=== PATIENT | male | born 1970 | race Caucasian/White ===

== ENCOUNTER 2023-01-23 15:09 | Emergency (ER) | payer BC ==
[2023-01-23] MEDS ORDERED: NS IV 1000 ML 1,000 ML IV STA (15:24)
[2023-01-23] MEDS ORDERED: TETANUS,DIPTH,PERTUSS P/F (BOOSTRIX) 0.5 ML VIAL IM ONE (15:30)
[2023-01-23] MEDS ORDERED: ONDANSETRON 4 MG/2 ML (SDV) Z0FRAN ONE (15:34)
[2023-01-23 15:35] LABS: BASOPHILS # (AUTO) 0.1 10^3/uL (0.0-0.1); BASOPHILS % (AUTO) 1 % (0-10); EOSINOPHILS # (AUTO) 0.2 10^3/uL (0.0-0.3); EOSINOPHILS % (AUTO) 2 % (0-10); HEMATOCRIT 45 % (40-54); HEMOGLOBIN 14.9 g/dL (13.3-17.7); LYMPHOCYTES # (AUTO) 2.8 10^3/uL (1.0-4.0); LYMPHOCYTES % (AUTO) 27 % (12-44); MEAN CORPUSCULAR HEMOGLOBIN 28 pg (25-34); MEAN CORPUSCULAR HGB CONC 34 g/dL (32-36); MEAN CORPUSCULAR VOLUME 84 fL (80-99); MEAN PLATELET VOLUME 10.6 fL (9.0-12.2); MONOCYTES # (AUTO) 0.8 10^3/uL (0.0-1.0); MONOCYTES % (AUTO) 7 % (0-12); NEUTROPHILS # (AUTO) 6.7 10^3/uL (1.8-7.8); NEUTROPHILS % (AUTO) 63 % (42-75); PLATELET COUNT 178 10^3/uL (130-400); WHITE BLOOD COUNT 10.6 10^3/uL (4.3-11.0)
[2023-01-23] MEDS ORDERED: ONDANSETRON 4 MG/2 ML (SDV) Z0FRAN IVP STA (15:35)
[2023-01-23] MEDS ORDERED: HOLD METFORMIN - RECEIVED CONTRAST 20 ML VIAL IV SCH (15:45)
[2023-01-23] MEDS ORDERED: IOHEXOL 350 MG/ML 100 ML (OMNIPAQUE 350) VIAL IV ONE (15:45)
[2023-01-23] MEDS ORDERED: NS 100 ML (IVPB) BAG IV ONE (15:45)
[2023-01-23 15:47] LABS: PROTHROMBIN TIME PATIENT 13.3 SEC (12.2-14.7)
--- NOTE | 2023-01-23 15:52 | ED Fall/Injury ---
General Chief Complaint: Trauma-Non Activation Stated Complaint: FALL; LT WRIST/ANKLE/HIP Nursing Triage Note: READ TRIAGE NOTE Source: patient Exam Limitations: no limitations History of Present Illness Date Seen by Provider: Jan 23, 2023 Time Seen by Provider: 15:11 Initial Comments 52-year-old male presenting with complaints of falling from approximately 8 feet up on a ladder. He was working on loading his camper and grabbed on to the rail of the camper roof and it gave way causing him to fall. He thinks he hit the boat on his way down. he took the brunt of the force on his left side. he thinks he passed out for a few seconds when he hit the concrete. He has abrasions to the left side of his head, contusion and abrasion to left wrist, pain to lateral left ankle, pain to low back and left hip, pain to left chest wall posteriorly. He drank a few sips of water on his way to the ED. He was able to get up with assistance and came by private vehicle to the ED. He has some nausea with his pain. He can not bear weight on the left leg without severe pain in lateral ankle and hip/buttocks area. He did not take anything for pain prior to coming to the ED. He reports his pain was severe initially but now down to a 5 or 6. He thinks it has been more than 5 years since his last tetanus shot. He denies allergies to medicines but states he is not supposed to take ibuprofen because he takes meloxicam. Occurred: just prior to arrival Severity: moderate Injuries/Pain Location: head, neck, upper extremity (left wrist), chest, abdomen, back, pelvis (left hip), lower extremity (left ankle) Context: lost balance (railing on top of camper gave way while he was up about 8 feet on a ladder causing him to fall and hit his boat and then the cement ) Loss of Consciousness: brief (seconds) Modifying Factors: Worse With Movement Associated Symptoms (Fall): Abdominal Pain (left flank), Chest Pain (left posterior chest); No Confusion, No Dizziness; Headache; No Lightheadedness, No Muscle Spasms; Nausea/Vomiting (nausea with his pain but no emesis), Neck Pain; No Ringing in Ears, No Seizures Allergies and Home Medications Allergies Coded Allergies: No Known Drug Allergies (Unverified , 01/23/23) Patient Home Medication List Home Medication List Reviewed: Yes Cyclobenzaprine HCl (Cyclobenzaprine HCl) 10 Mg Tablet, 10 MG PO Q8H PRN for SPASMS Prescribed by: NIVIA PAGE on 01/23/23 165 Hydrocodone/Acetaminophen (Hydrocodone-Acetamin 5-325 mg) 5 Mg-325 Mg Tablet, 1 TAB PO Q4H PRN for PAIN SEVERE Prescribed by: NIVIA PAGE on 01/23/23 165 Review of Systems Review of Systems Constitutional: No chills, No dizziness, No fever Eyes: Denies Blurred Vision, Denies Photophobia, Denies Vision Changes Ears, Nose, Mouth, Throat: denies ear pain, denies ear discharge, denies nose pain, denies nose discharge, denies epistaxis Respiratory: No cough, No dyspnea on exertion, No short of breath Cardiovascular: chest pain (left side of chest posteriorly) Gastrointestinal: abdominal pain (left flank and posterior low back) Genitourinary: No dysuria Musculoskeletal: see HPI, back pain, joint pain (left wrist and left ankle) Skin: see HPI Psychiatric/Neurological: Headache; Denies Numbness, Denies Paresthesia Past Mvszicf-Fuqurm-Wzwiek Hx Patient Social History Tobacco Use?: No Use of E-Cig and/or Vaping dev: No Substance use?: No Alcohol Use?: No Pt feels they are or have been: No Physical Exam Vital Signs Vital Signs - First Documented 01/23/23 15:20 Temp 36.4 Pulse 83 Resp 16 B/P (MAP) 133/99 (110) Pulse Ox 95 O2 Delivery Room Air Capillary Refill : Less Than 3 Seconds Height, Weight, BMI Height: '" Weight: lbs. oz. kg; BMI Method: General Appearance: WD/WN, obese HEENT: PERRL/EOMI, normal ENT inspection, TMs normal, pharynx normal; No TM abnormal (R), No TM abnormal (L); other (Negative bansal sign, negative raccoon sign, no CSF otorrhea, no CSF rhinorrhea, no hemotympanums, abrasions to the left scalp) Neck: full range of motion, supple, tender lateral (left lateral neck muscle pain) Cardiovascular: normal peripheral pulses, regular rate, rhythm Respiratory: No chest non-tender (tender to left lateral and posterior chest wall. no crepitus or step off); lungs clear, normal breath sounds, no respiratory distress, no accessory muscle use Gastrointestinal: normal bowel sounds, soft, no pulsatile mass, tenderness (left flank and low back pain) Rectal: deferred Extremities: normal range of motion, normal capillary refill, other (pain to left medial wrist where he has contusion and abrasions, pain to left lateral ankle without crepitus or step off. 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, no motor/sensory deficits, alert, normal mood/affect, oriented x 3 Skin: warm/dry, other (contusion and abrasion to left medial wrist, abrasions to left scalp) Hernandez Coma Score Best Eye Response: (4) Open Spontaneously Best Verbal Response: (5) Oriented Best Motor Response: (6) Obeys Commands [place] Total: 15 Progress/Results/Core Measures Results/Orders Lab Results Laboratory Tests Test 01/23/23 15:35 01/23/23 16:13 Range/Units White Blood Count 10.6 4.3-11.0 10^3/uL Red Blood Count 5.30 4.30-5.52 10^6/uL Hemoglobin 14.9 13.3-17.7 g/dL Hematocrit 45 40-54 % Mean Corpuscular Volume 84 80-99 fL Mean Corpuscular Hemoglobin 28 25-34 pg Mean Corpuscular Hemoglobin Concent 34 32-36 g/dL Red Cell Distribution Width 14.2 10.0-14.5 % Platelet Count 178 130-400 10^3/uL Mean Platelet Volume 10.6 9.0-12.2 fL Immature Granulocyte % (Auto) 1 % Neutrophils (%) (Auto) 63 42-75 % Lymphocytes (%) (Auto) 27 12-44 % Monocytes (%) (Auto) 7 0-12 % Eosinophils (%) (Auto) 2 0-10 % Basophils (%) (Auto) 1 0-10 % Neutrophils # (Auto) 6.7 1.8-7.8 10^3/uL Lymphocytes # (Auto) 2.8 1.0-4.0 10^3/uL Monocytes # (Auto) 0.8 0.0-1.0 10^3/uL Eosinophils # (Auto) 0.2 0.0-0.3 10^3/uL Basophils # (Auto) 0.1 0.0-0.1 10^3/uL Immature Granulocyte # (Auto) 0.1 0.0-0.1 10^3/uL Prothrombin Time 13.3 12.2-14.7 SEC INR Comment 1.0 0.8-1.4 Activated Partial Thromboplast Time 23 L 24-35 SEC Sodium Level 144 135-145 MMOL/L Potassium Level 4.0 3.6-5.0 MMOL/L Chloride Level 107 98-107 MMOL/L Carbon Dioxide Level 22 21-32 MMOL/L Anion Gap 15 H 5-14 MMOL/L Blood Urea Nitrogen 22 H 7-18 MG/DL Creatinine 0.88 0.60-1.30 MG/DL Estimat Glomerular Filtration Rate 103 BUN/Creatinine Ratio 25 Glucose Level 134 H 70-105 MG/DL Calcium Level 8.7 8.5-10.1 MG/DL Corrected Calcium 8.6 8.5-10.1 MG/DL Total Bilirubin 0.4 0.1-1.0 MG/DL Aspartate Amino Transf (AST/SGOT) 22 5-34 U/L Alanine Aminotransferase (ALT/SGPT) 29 0-55 U/L Alkaline Phosphatase 108 40-136 U/L Total Protein 7.1 6.4-8.2 GM/DL Albumin 4.1 3.2-4.5 GM/DL Urine Color YELLOW Urine Clarity CLEAR Urine pH 5.5 5-9 Urine Specific [place] >=1.030 1.016-1.022 Urine Protein TRACE H NEGATIVE Urine Glucose (UA) NEGATIVE NEGATIVE Urine Ketones NEGATIVE NEGATIVE Urine Nitrite NEGATIVE NEGATIVE Urine Bilirubin NEGATIVE NEGATIVE Urine Urobilinogen 0.2 < = 1.0 MG/DL Urine Leukocyte Esterase NEGATIVE NEGATIVE Urine RBC (Auto) NEGATIVE NEGATIVE Urine RBC NONE /HPF Urine WBC NONE /HPF Urine Squamous Epithelial Cells NONE /HPF Urine Crystals NONE /LPF Urine Bacteria FEW H /HPF Urine Casts PRESENT /LPF Urine Hyaline Casts 5-10 H /LPF Urine Mucus LARGE H /LPF Urine Culture Indicated NO My Orders Orders - NIVIA PAGE MD Cbc With Automated Diff (01/23/23 15:24) Comprehensive Metabolic Panel (01/23/23 15:24) Protime With Inr (6/30/23 15:24) Partial Thromboplastin Time (01/23/23 15:24) Ed Iv/Invasive Line Start (01/23/23 15:24) Ua Culture If Indicated (01/23/23 15:24) Ankle 3 View Left (01/23/23 15:24) Wrist 3 View Left (01/23/23 15:24) Ct Head/Cervical Spine Wo (01/23/23 15:24) Ct Chest/Abdomen/Pelvis W (01/23/23 15:24) Ns Iv 1000 Ml (Sodium Chloride 0.9%) (01/23/23 15:24) Ice: Apply To Affected Area (01/23/23 15:24) Dipht,Pertuss(Acell),Tet Adult (Boostrix (01/23/23 15:30) Iohexol Injection (Omnipaque 350 Mg/Ml 1 (01/23/23 15:45) Received Contrast (Hold Metformin- Contr (01/23/23 15:45) Ns (Ivpb) (Sodium Chloride 0.9% Ivpb Bag (01/23/23 15:45) Ondansetron Injection (Zofran Injectio (01/23/23 15:35) Ondansetron Injection (Zofran Injectio (01/23/23 15:34) Fentanyl Inj (Sublimaze Injection) (01/23/23 16:04) Wrist-[place] (01/23/23 16:41) Air Strup Ankle Brace (01/23/23 16:41) Crutches (01/23/23 16:41) Medications Given in ED Current Medications Medications Dose Ordered Sig/Geno Route Start Time Stop Time Status Last Admin Dose Admin Diphtheria/ Tetanus/Acell Pertussis 0.5 ml ONCE ONCE IM 01/23/23 15:30 01/23/23 15:31 DC 01/23/23 15:35 0.5 ML Iohexol 100 ml ONCE ONCE IV 01/23/23 15:45 01/23/23 15:46 DC 01/23/23 15:44 100 ML Sodium Chloride 100 ml ONCE ONCE IV 01/23/23 15:45 01/23/23 15:46 DC 01/23/23 15:44 100 ML Vital Signs/I&O 01/23/23 01/23/23 15:20 16:54 Temp 36.4 36.4 Pulse 83 82 Resp 16 16 B/P (MAP) 133/99 (110) 124/84 Pulse Ox 95 97 O2 Delivery Room Air Room Air Blood Pressure Mean: 110 Progress Progress Note #1: Progress Note Potential diagnosis of intracranial hemorrhage, skull fracture, cervical spine fracture, thoracic spine fracture, hemothorax, pneumothorax, lumbar spine fracture, hip fracture, ankle fracture, wrist fracture, multiple abrasions/contusions. Obtain peripheral IV access and check labs of complete blood count, comprehensive metabolic profile, coagulation factors, UA to check for hematuria. CT scan of head and cervical spine without contrast, CT chest, abdomen, pelvis with IV contrast to look for internal injuries or fractures. Xrays of left wrist and left ankle. Ice packs to help with pain. Clean abrasions to left scalp. Patient refused any pain medicines at this point. Saline 1 Liter IVF bolus for hydration. Patient requested something for nausea before going to radiology so given Zofran 4 mg IV. Progress Note #2: Time: 16:00 Progress Note I did not appreciate any fractures or internal injury/bleeding on my personal interpretation and review of Left wrist xrays, Left ankle xrays, CT scan of head, cervical spine, chest abdomen and pelvis. On return to department patient decided he wanted something for pain so given Fentanyl 50 mcg IV x 1. Progress Note #3: Time: 16:45 Progress Note I reviewed the radiologist reports on Ankle xray, Wrist xray, CT scan of head, cervical spine, chest, abdomen, pelvis. They did not see any acute fractures or internal bleeding. Labs did not show elevated WBC count for infection, normal hemoglobin at 14.9, Comprehensive metabolic profile without acute significant abnormality, normal coagulation factors. UA was concentrated with elevated specific gravity >1.030 but no blood or signs of infection. Pt reports pain improved after ice and fentanyl Treat with wrist splint and ankle splint for support. Patient has access to walker and plans to use it instead of crutches. May take acetaminophen in addition to his meloxicam, for severe pain send prescription for hydrocodone/apap 5/325 1 every 4 hours prn severe pain, Cyclobenzaprine 10 mg po tid prn muscle spasms. Stay well hydrated and drink plenty of fluids. Use ice packs to help with pain and inflammation. Check back with clinic for continued concerns or if not improving as he may need PT or other imaging. Diagnostic Imaging Diagonstic Imaging: CT Plain Films/CT/US/NM/MRI: c-spine, head Comments [facility]. [place], [place] NAME: ALEXANDRA HONG [facility] REC#: [id number] PT STATUS: REG ER : 1970 PHYSICIAN: NIVIA PAGE MD ADMIT DATE: 01/23/23/ER FS Draft Date of Exam:01/23/23 CT HEAD/CERVICAL SPINE WO CLINICAL INDICATION: Patient is status post fall from an 8-foot ladder. Patient has left-sided pain. EXAM: Head CT without IV contrast with sagittal and coronal reformations. Axial CT scan of the cervical spine with sagittal and coronal reformations. Auto Exposure Controls were utilized during the CT exam to meet ALARA standards for radiation dose reduction. COMPARISON: None. FINDINGS: Head CT: There is no evidence of acute cerebral infarct, intracranial hemorrhage, or gross mass effect. The brain parenchymal volume appears appropriate for patient's age. There is normal raya-white matter distinction. There is no significant midline shift or herniation. There is no evidence of hydrocephalus. The basal cisterns are unremarkable. There is a small amount of extracranial soft tissue swelling involving the left side and posterior aspect of the head. There is no skull fracture. Otherwise, the skull, extracranial soft tissue, and orbits are unremarkable. There is a large mucus retention cyst in the left maxillary sinus. Temporal bones show no significant abnormality. Cervical spine: There is no acute cervical spine fracture or dislocation. There is straightening of the abnormal kyphosis of the upper cervical spine posture. There are hypertrophic spurs involving the cervical spine. There is no significant neck soft tissue abnormality. IMPRESSION: 1: There is no evidence of acute intracranial hemorrhage. 2: There is a small amount of extracranial soft tissue swelling involving the left and posterior aspect of the head. There is no skull fracture. 3: There is cervical spine degenerative disease with no acute fracture. Dictated on workstation # [id number] Dict: 01/23/23 1602 Trans: 01/23/23 1612 AS6 [id number] Interpreted by: REJI COUCH MD Electronically signed by: Reviewed: Reviewed by Nd Diagonstic Imaging: CT Plain Films/CT/US/NM/MRI: chest, abdomen, pelvis Comments [facility] [place], [place] NAME: ALEXANDRA HONG [facility] REC#: [id number] PT STATUS: REG ER : 1970 PHYSICIAN: NIVIA PAGE MD ADMIT DATE: 01/23/23/ER FS Draft Date of Exam:01/23/23 CT CHEST/ABDOMEN/PELVIS W PROCEDURE: CT chest, abdomen, and pelvis with contrast. TECHNIQUE: Multiple contiguous axial images were obtained through the chest, abdomen, and pelvis after the administration of intravenous contrast. Auto Exposure Controls were utilized during the CT exam to meet ALARA standards for radiation dose reduction. INDICATION: Trauma. Left torso pain. Fall from ladder. COMPARISON: None. FINDINGS: CT CHEST: Normal heart size. No pericardial effusion. No lymphadenopathy. Normal-caliber thoracic aorta and pulmonary arteries. Lungs are clear. No pleural effusion or pneumothorax. Osseous structures are intact. CT ABDOMEN AND PELVIS: Cholecystectomy. The liver, pancreas, spleen, adrenals, kidneys, collecting systems and bladder are negative. No evidence of appendicitis. No free intraperitoneal air or fluid. No lymphadenopathy. No evidence of bowel obstruction. No acute osseous findings. IMPRESSION: No acute CT findings in the chest, abdomen or pelvis. Dictated on workstation # [id number] Dict: 01/23/23 1606 Trans: 01/23/23 1614 AS6 [id number] Interpreted by: MARZENA TRINIDAD MD Electronically signed by: Reviewed: Reviewed by Nd Diagonstic Imaging: Xray Plain Films/CT/US/NM/MRI: ankle Comments [facility]. [place], [place] NAME: ALEXANDRA HONG [facility] REC#: [id number] PT STATUS: REG ER : 1970 PHYSICIAN: NIVIA PAGE MD ADMIT DATE: 01/23/23/ER FS Draft Date of Exam:01/23/23 ANKLE 3 VIEW LEFT INDICATION: Left ankle pain. AP, oblique, and lateral views of the left ankle are obtained. FINDINGS: No fracture or acute bony abnormality is seen. There is plantar and posterior calcaneal spurring. There are chronic appearing calcifications inferior to the medial malleolus. There are some chronic calcifications lateral to the lateral malleolus. IMPRESSION: Chronic changes of left ankle as above with no acute abnormality. Dictated on workstation # [id number] Dict: 01/23/23 1605 Trans: 01/23/23 1608 [id number] Interpreted by: CARMENZA FAGAN MD Electronically signed by: Reviewed: Reviewed by Me Diagonstic Imaging: Xray Plain Films/CT/US/NM/MRI: other (wrist) Comments [facility] [place], [place] NAME: ALEXANDRA HONG [facility] REC#: [id number] PT STATUS: REG ER : 1970 PHYSICIAN: NIVIA PAGE MD ADMIT DATE: 01/23/23/ER FS Draft Date of Exam:01/23/23 WRIST 3 VIEW LEFT INDICATION: Left wrist pain post fall. EXAMINATION: AP, oblique and lateral views of the left wrist were obtained. FINDINGS: No fracture or acute bony abnormality is seen. There is degenerative change of 1st carpal metacarpal joint and of the radial carpal joint. There is some degenerative change of the radial ulnar joint. IMPRESSION: Multifocal degenerative changes with no acute abnormality in the left wrist. Dictated on workstation # [id number] Dict: 01/23/23 1606 Trans: 01/23/23 1609 [id number] [id number] Interpreted by: CARMENZA FAGAN MD Electronically signed by: Reviewed: Reviewed by Me Departure Impression Primary Impression: Fall on and from ladder, initial encounter Additional Impressions: Abrasion of scalp, initial encounter Contusion of left wrist, initial encounter Left ankle sprain Qualified Codes: S93.402A - Sprain of unspecified ligament of left ankle, initial encounter Contusion, multiple sites Disposition: 01 HOME, SELF-CARE Condition: Stable Departure-Patient Inst. Decision time for Depature: 16:50 Referrals: ELEAZAR VITALE MD (PCP) Primary Care Physician Patient Instructions: Abrasions ED, Ankle Sprain ED, General Trauma, Adult ED, Minor Contusion ED, Using Cold for Pain, Wrist Sprain ED Add. Discharge Instructions: Use ice 20 to 30 minutes every few hours as needed for pain and swelling and inflammation. Stay well hydrated to help flush out your muscles and inflammation. Check with Dr. Vitale and [facility] clinic for continued concerns. Use splints for next 5 to 7 days or at least until you are not having pain. If your pain continues for more than a week then check with clinic as they may need to set up physical therapy or repeat imaging. Use the cyclobenzaprine to help with muscle spasms. For severe pain use the Hydrocodone/Acetaminophen. Keep abrasions clean with soap and water and may apply antibiotic ointment 2 to 3 times a day as needed to help them heal and prevent infection. All discharge instructions reviewed with patient and/or family. Voiced understanding. Scripts Hydrocodone/Acetaminophen (Hydrocodone-Acetamin 5-325 mg) 5 Mg-325 Mg Tablet 1 TAB PO Q4H PRN for PAIN SEVERE for 4 Days, #24 TAB 0 Refills Prov: NIVIA PAGE MD 01/23/23 Cyclobenzaprine HCl (Cyclobenzaprine HCl) 10 Mg Tablet 10 MG PO Q8H PRN for SPASMS for 7 Days, #21 TAB 0 Refills Prov: NIVIA PAGE MD 01/23/23 NIVIA PAGE MD Jan 23, 2023 15:52
[2023-01-23] MEDS ORDERED: fentaNYL INJ 100 MCG/2 ML AMP IVP STA (16:04)
--- NOTE | 2023-01-23 16:08 | Diagnostic Imaging Report ---
INDICATION: Left ankle pain. AP, oblique, and lateral views of the left ankle are obtained. FINDINGS: No fracture or acute bony abnormality is seen. There is plantar and posterior calcaneal spurring. There are chronic appearing calcifications inferior to the medial malleolus. There are some chronic calcifications lateral to the lateral malleolus. IMPRESSION: Chronic changes of left ankle as above with no acute abnormality. Dictated by: Dictated on workstation # [id number]
--- NOTE | 2023-01-23 16:09 | Diagnostic Imaging Report ---
INDICATION: Left wrist pain post fall. EXAMINATION: AP, oblique and lateral views of the left wrist were obtained. FINDINGS: No fracture or acute bony abnormality is seen. There is degenerative change of 1st carpal metacarpal joint and of the radial carpal joint. There is some degenerative change of the radial ulnar joint. IMPRESSION: Multifocal degenerative changes with no acute abnormality in the left wrist. Dictated by: Dictated on workstation # [id number]
[2023-01-23 16:13] LABS: BILIRUBIN,URINE NEGATIVE (NEGATIVE); CLARITY,URINE CLEAR; COLOR,URINE YELLOW; GLUCOSE, URINE (UA) NEGATIVE (NEGATIVE); KETONES,URINE NEGATIVE (NEGATIVE); LEUKOCYTE ESTERASE ,URINE NEGATIVE (NEGATIVE); NITRITE,URINE NEGATIVE (NEGATIVE); PH,URINE 5.5 (5-9); PROTEIN,URINE TRACE (NEGATIVE)
--- NOTE | 2023-01-23 16:13 | Diagnostic Imaging Report ---
CLINICAL INDICATION: Patient is status post fall from an 8-foot ladder. Patient has left-sided pain. EXAM: Head CT without IV contrast with sagittal and coronal reformations. Axial CT scan of the cervical spine with sagittal and coronal reformations. Auto Exposure Controls were utilized during the CT exam to meet ALARA standards for radiation dose reduction. COMPARISON: None. FINDINGS: Head CT: There is no evidence of acute cerebral infarct, intracranial hemorrhage, or gross mass effect. The brain parenchymal volume appears appropriate for patient's age. There is normal raya-white matter distinction. There is no significant midline shift or herniation. There is no evidence of hydrocephalus. The basal cisterns are unremarkable. There is a small amount of extracranial soft tissue swelling involving the left side and posterior aspect of the head. There is no skull fracture. Otherwise, the skull, extracranial soft tissue, and orbits are unremarkable. There is a large mucus retention cyst in the left maxillary sinus. Temporal bones show no significant abnormality. Cervical spine: There is no acute cervical spine fracture or dislocation. There is straightening of the abnormal kyphosis of the upper cervical spine posture. There are hypertrophic spurs involving the cervical spine. There is no significant neck soft tissue abnormality. IMPRESSION: 1: There is no evidence of acute intracranial hemorrhage. 2: There is a small amount of extracranial soft tissue swelling involving the left and posterior aspect of the head. There is no skull fracture. 3: There is cervical spine degenerative disease with no acute fracture. Dictated by: Dictated on workstation # [id number]
--- NOTE | 2023-01-23 16:15 | Diagnostic Imaging Report ---
PROCEDURE: CT chest, abdomen, and pelvis with contrast. TECHNIQUE: Multiple contiguous axial images were obtained through the chest, abdomen, and pelvis after the administration of intravenous contrast. Auto Exposure Controls were utilized during the CT exam to meet ALARA standards for radiation dose reduction. INDICATION: Trauma. Left torso pain. Fall from ladder. COMPARISON: None. FINDINGS: CT CHEST: Normal heart size. No pericardial effusion. No lymphadenopathy. Normal-caliber thoracic aorta and pulmonary arteries. Lungs are clear. No pleural effusion or pneumothorax. Osseous structures are intact. CT ABDOMEN AND PELVIS: Cholecystectomy. The liver, pancreas, spleen, adrenals, kidneys, collecting systems and bladder are negative. No evidence of appendicitis. No free intraperitoneal air or fluid. No lymphadenopathy. No evidence of bowel obstruction. No acute osseous findings. IMPRESSION: No acute CT findings in the chest, abdomen or pelvis. Dictated by: Dictated on workstation # [id number]
[2023-01-23 16:18] LABS: BACTERIA,URINE FEW /HPF
[2023-01-23 16:19] LABS: CREATININE SERUM 0.88 MG/DL (0.60-1.30)
[2023-01-23 16:20] LABS: ALBUMIN 4.1 GM/DL (3.2-4.5); BILIRUBIN,TOTAL 0.4 MG/DL (0.1-1.0); CALCIUM 8.7 MG/DL (8.5-10.1); TOTAL PROTEIN 7.1 GM/DL (6.4-8.2)
[2023-01-23] MEDS ORDERED: ACHD5005 PO (16:51)
[2023-01-23] MEDS ORDERED: CYCL10TA25 PO (16:51)
[2023-01-23 16:54] VITALS: BP 124/84
== END 2023-01-23 16:57 | disposition home or self-care (01) ==
LOC: EDUNIT# 15:09 → ER FS 15:11
DX: S93.402A Sprain of unspecified ligament of left ankle, initial encounter (principal); S60.212A Contusion of left wrist, initial encounter; S00.01XA Abrasion of scalp, initial encounter; Z23 Encounter for immunization; W11.XXXA Fall on and from ladder, initial encounter; W22.09XA Striking against other stationary object, initial encounter
CPT/HCPCS: 36415; 70450; 71260; 72125; 73110; 73610; 74177; 80053; 81000; 85025; 85610; 85730; 90715; Q9967